=== PATIENT | male | born 1985 | race Hispanic/Latino ===

== ENCOUNTER 2018-09-08 19:50 | Emergency (ER) | payer OTHER ==
[2018-09-08] MEDS ORDERED: FAMOTIDINE 20MG TAB 20 MG TAB ONE (20:18)
[2018-09-08] MEDS ORDERED: PANTOPRAZOLE SODIUM 40 MG TABLET.DR PO ONE (20:18)
[2018-09-08] MEDS ORDERED: ONDANSETRON ODT 4 MG TAB ONE (20:18)
[2018-09-08] MEDS ORDERED: LIDOCAINE HCL 2% VISCOUS 15 ML UDCUP ONE (20:46)
[2018-09-08] MEDS ORDERED: MAG HYDROX/AL HYDROX/SIMETH ES 30 ML SUSP UDCUP ONE (20:46)
== END 2018-09-08 21:02 | disposition home or self-care (01) ==
LOC: EDH 19:50
DX: R10.13 Epigastric pain (principal); R11.0 Nausea; R07.89 Other chest pain; R10.30 Lower abdominal pain, unspecified
CPT/HCPCS: 93005

== ENCOUNTER 2018-10-14 02:29 | Emergency (ER) | payer OTHER ==
[2018-10-14] MEDS ORDERED: MAG HYDROX/AL HYDROX/SIMETH ES 30 ML SUSP UDCUP ONE (03:09)
[2018-10-14] MEDS ORDERED: LIDOCAINE HCL 2% VISCOUS 15 ML UDCUP ONE (03:09)
[2018-10-14] MEDS ORDERED: PANTOPRAZOLE SODIUM 40 MG TABLET.DR PO ONE (03:09)
[2018-10-14] MEDS ORDERED: ONDANSETRON ODT 4 MG TAB ONE (03:35)
== END 2018-10-14 03:52 | disposition home or self-care (01) ==
LOC: EDH 02:29
DX: B34.9 Viral infection, unspecified (principal); R10.13 Epigastric pain; Z72.0 Tobacco use